=== PATIENT | male | born 1960 | race African-American/Black ===

== ENCOUNTER → 2016-10-12 | Outpatient (CLI) | payer OTHER | END | disposition home or self-care (01) | LOC: PF 07:32 | PROVIDERS: ATTEND Neuromusculoskeletal Medicine, Sports Medicine | DX: C34.90 Malignant neoplasm of unspecified part of unspecified bronchus or lung (principal) | CPT/HCPCS: 94060; 94729 ==

== ENCOUNTER 2019-11-29 17:38 | Emergency (ER) | payer OTHER ==
[~2019-11-29] VITALS: Ht 182.9 cm; Wt 113.6 kg
--- NOTE | 2019-11-29 18:20 | RAD ---
INDICATION: Shortness of air with recent biopsy COMPARISON: None. FINDINGS: Single view of chest obtained. 2-lead pacemaker is identified. Moderate to large right-sided pneumothorax is seen. The pleural edge is approximately 3 cm from the lateral chest wall and measures approximately 75 mm at the right apex. There is patchy opacities within the right lung. IMPRESSION: * Moderate to large right-sided pneumothorax. * Patchy opacities within the right lung. Comparison is not available for review to assess how much of this is pre-existing and how much is an acute finding. If the patient had a mass in the area portion of this could be secondary to a mass with alveolar hemorrhage, infection or aspiration also potentially having this radiographic appearance. Report called to the patient's floor at 6:14 PM on date of exam. Electronically signed by: Gerardo Casanova MD (11/29/2019 6:17 PM) [id number]
[2019-11-29 18:37] LABS: BASO % 1 % (0-3); EOS # 0.1 x10^3/uL (0.0-0.7); EOS % 2 % (0-3); HEMATOCRIT 51.4 % (39.0-53.0); HEMOGLOBIN 17.1 g/dL (13.0-17.5); LYMPH # 1.2 x10^3/uL (1.0-4.8); LYMPH % 19 % (24-48); MEAN CORPUSCULAR HEMOGLOBIN 27 pg (25-35); MEAN CORPUSCULAR HGB CONC 33 g/dL (31-37); MEAN CORPUSCULAR VOLUME 81 fL (79-100); MONO # 0.6 x10^3/uL (0.0-1.1); MONO % 10 % (0-9); NEUT # 4.5 x10^3/uL (1.8-7.7); NEUT % 70 % (31-73); PLATELET COUNT 200 x10^3/uL (140-400); RED BLOOD COUNT 6.34 x10^6/uL (4.30-5.70); RED CELL DISTRIBUTION WIDTH 14.6 % (11.5-14.5); WHITE BLOOD COUNT 6.4 x10^3/uL (4.0-11.0)
[2019-11-29] MEDS ORDERED: MIDAZOLAM HCL/PF 5 MG/5 ML VIAL. ONE (18:43)
[2019-11-29] MEDS ORDERED: MIDAZOLAM HCL/PF 5 MG/5 ML VIAL. NS ONE (18:45)
[2019-11-29] MEDS ORDERED: fentaNYL PF VIAL 100 MCG/2 ML VIAL IVP ONE ×3 (18:45→22:00)
[2019-11-29 18:48] LABS: CALCIUM 9.1 mg/dL (8.5-10.1); CREATININE 1.1 mg/dL (0.7-1.3); GFR 82.3; POTASSIUM 3.9 mmol/L (3.5-5.1)
[2019-11-29 18:54] LABS: ALBUMIN 3.9 g/dL (3.4-5.0); ALBUMIN/GLOBULIN RATIO 1.3 (1.0-1.7); TOTAL BILIRUBIN 0.5 mg/dL (0.2-1.0); TOTAL PROTEIN 6.9 g/dL (6.4-8.2)
--- NOTE | 2019-11-29 19:38 | RAD ---
INDICATION: Follow-up of pneumothorax post chest tube placement COMPARISON: Earlier same day FINDINGS: Single view of chest obtained. Pacemaker is again seen. Repeat demonstration of focal opacity in the right lung. Interval placement of a smallbore chest tube with decrease in size of right-sided pneumothorax with some of the pneumothorax persisting at the right upper chest superiorly and laterally. Pleural line is approximately 4 cm from the lung apex and lateral component is approximately 2 cm from the chest wall. IMPRESSION: * Interval placement of chest tube with decrease in size of previously identified pneumothorax with the apical component and a portion of the lateral component persisting. * Repeat demonstration of focal opacity in the right lung as seen on prior exam. Electronically signed by: Gerrado Casanova MD (11/29/2019 7:35 PM) [id number]
--- NOTE | 2019-11-29 19:55 | PHYS DOC ---
Past Medical History Past Medical History: Cancer, COPD, Diabetes-Type II, Hypertension, Other Additional Past Medical Histor: LUNG CA/CHEMO/RADIATION/CARDIOMYOPATHY Past Surgical History: Pacemaker, Other Additional Past Surgical Histo: R LUNG BX Smoking Status: Former Smoker Alcohol Use: Rarely General Adult EDM: Chief Complaint: SHORTNESS OF BREATH HPI: HPI: Patient is a 59 year old male who presents with complaint of right-sided chest discomfort and shortness of breath that started at about 5 PM today. Patient indicates that he was seen earlier at the [facility] for a lung biopsy. Patient describes the pain in his chest is sharp and stabbing and he also indicates that he has had some cough. He states the shortness of breath is worsened with minimal exertion. He rates pain is fairly severe. [] Review of Systems: Review of Systems: Constitutional: Denies fever or chills. [] Respiratory: Complains of cough and shortness of breath. [] Cardiovascular: Complains of right-sided chest wall pain. [] GI: Denies abdominal pain, nausea, vomiting or diarrhea. [] Integument: Denies rash. [] Neurologic: Denies headache, focal weakness or sensory changes. [] A full 10 point review of systems has been reviewed and is otherwise negative. Heart Score: Risk Factors: Risk Factors: DM, Current or recent (<one month) smoker, HTN, HLP, family history of CAD, obesity. Risk Scores: Score 0 - 3: 2.5% MACE over next 6 weeks - Discharge Home Score 4 - 6: 20.3% MACE over next 6 weeks - Admit for Clinical Observation Score 7 - 10: 72.7% MACE over next 6 weeks - Early Invasive Strategies Current Medications: Current Medications Medications (Trade) Dose Ordered Sig/Tommy Start Time Stop Time Status Last Admin Dose Admin Fentanyl Citrate (Fentanyl 2ml Vial) 50 mcg 1X ONCE 11/29/19 18:45 11/29/19 18:46 DC 11/29/19 18:49 50 MCG Midazolam HCl (Versed) 5 mg STK-MED ONCE 11/29/19 18:43 11/29/19 18:43 DC Allergies: Allergies: Allergies Coded Allergies Type Severity Reaction Last Updated Verified adhesive tape Allergy Intermediate 11/29/19 Yes metformin Allergy Intermediate UNKNOWN 11/29/19 Yes shellfish derived Allergy Intermediate UNKNOWN 11/29/19 Yes Physical Exam: PE: Constitutional: Well developed, well nourished, no acute distress, non-toxic ap pearance. [] HENT: Normocephalic, atraumatic, bilateral external ears normal, oropharynx moist, no oral exudates, nose normal. [] Eyes: PERRLA, EOMI, conjunctiva normal, no discharge. [] Neck: Normal range of motion, no tenderness, supple. [] Cardiovascular: Regular rate and rhythm [] Lungs & Thorax: Diminished breath sounds are noted on the right to auscultation [] Abdomen: Bowel sounds normal, soft, no tenderness. [] Skin: Warm, dry, no erythema, no rash. [] Extremities: No tenderness, no cyanosis, no clubbing, ROM intact. [] Neurologic: Alert and oriented X 3, no focal deficits noted. [] Current Patient Data: Labs: Laboratory Tests Test 11/29/19 17:45 White Blood Count 6.4 x10^3/uL (4.0-11.0) Red Blood Count 6.34 x10^6/uL (4.30-5.70) H Hemoglobin 17.1 g/dL (13.0-17.5) Hematocrit 51.4 % (39.0-53.0) Mean Corpuscular Volume 81 fL (79-100) Mean Corpuscular Hemoglobin 27 pg (25-35) Mean Corpuscular Hemoglobin Concent 33 g/dL (31-37) Red Cell Distribution Width 14.6 % (11.5-14.5) H Platelet Count 200 x10^3/uL (140-400) Neutrophils (%) (Auto) 70 % (31-73) Lymphocytes (%) (Auto) 19 % (24-48) L Monocytes (%) (Auto) 10 % (0-9) H Eosinophils (%) (Auto) 2 % (0-3) Basophils (%) (Auto) 1 % (0-3) Neutrophils # (Auto) 4.5 x10^3/uL (1.8-7.7) Lymphocytes # (Auto) 1.2 x10^3/uL (1.0-4.8) Monocytes # (Auto) 0.6 x10^3/uL (0.0-1.1) Eosinophils # (Auto) 0.1 x10^3/uL (0.0-0.7) Basophils # (Auto) 0.0 x10^3/uL (0.0-0.2) Sodium Level 141 mmol/L (136-145) Potassium Level 3.9 mmol/L (3.5-5.1) Chloride Level 105 mmol/L (98-107) Carbon Dioxide Level 27 mmol/L (21-32) Anion Gap 9 (6-14) Blood Urea Nitrogen 19 mg/dL (8-26) Creatinine 1.1 mg/dL (0.7-1.3) Estimated GFR (Cockcroft-Gault) 82.3 BUN/Creatinine Ratio 17 (6-20) Glucose Level 119 mg/dL (70-99) H Calcium Level 9.1 mg/dL (8.5-10.1) Total Bilirubin 0.5 mg/dL (0.2-1.0) Aspartate Amino Transferase (AST) 25 U/L (15-37) Alanine Aminotransferase (ALT) 41 U/L (16-63) Alkaline Phosphatase 84 U/L (46-116) Troponin I Quantitative 0.034 ng/mL (0.000-0.055) BL-Rgd-J-Type Natriuretic Peptide 358 pg/mL (0-124) H Total Protein 6.9 g/dL (6.4-8.2) Albumin 3.9 g/dL (3.4-5.0) Albumin/Globulin Ratio 1.3 (1.0-1.7) Laboratory Tests 11/29/19 17:45 Laboratory Tests 11/29/19 17:45 Vital Signs: Vital Signs Date Time Temp Pulse Resp B/P (MAP) Pulse Ox O2 Delivery O2 Flow Rate FiO2 11/29/19 19:15 78 21 114/87 (96) 94 Nasal Cannula 4.0 11/29/19 17:41 98.2 98.2 EKG: EKG: [] Radiology/Procedures: Radiology/Procedures: [] Impression: PROCEDURE: CHEST AP ONLY INDICATION: Shortness of air with recent biopsy COMPARISON: None. FINDINGS: Single view of chest obtained. 2-lead pacemaker is identified. Moderate to large right-sided pneumothorax is seen. The pleural edge is approximately 3 cm from the lateral chest wall and measures approximately 75 mm at the right apex. There is patchy opacities within the right lung. IMPRESSION: * Moderate to large right-sided pneumothorax. * Patchy opacities within the right lung. Comparison is not available for review to assess how much of this is pre-existing and how much is an acute finding. If the patient had a mass in the area portion of this could be secondary to a mass with alveolar hemorrhage, infection or aspiration also potentially having this radiographic appearance. Report called to the patient's floor at 6:14 PM on date of exam. Electronically signed by: Gerardo Casanova MD (11/29/2019 6:17 PM) [id number] Course & Med Decision Making: Course & Med Decision Making Pertinent Labs and Imaging studies reviewed. (See chart for details) [] Chest tube insertion: A timeout was performed and after the chest x-ray was reviewed, the appropriate side was confirmed and marked. The patient was prepped and draped in a normal sterile fashion using chlorhexidine scrub after the patient was positioned in the left lateral recumbent position. A total of 8 mL's of 1% lidocaine was then used to anesthetize the skin, subcutaneous tissue, superior aspect of the rib periosteum and the parietal pleura. A 1 cm incision was then made parallel to the rib in the midaxillary line at the level of the fifth rib. Subcu tissue and muscle, superior to the rib was dissected utilizing #11 blade scalpel. At this point, an 8 [place] chest tube with needle trocar was introduced to the pleural space and tube was advanced over needle. Chest tube was sutured in place at the site of insertion, and connected sick clearly with tape to the Pleur-evac. A sterile occlusive dressing was placed over the insertion site. Postprocedure chest x-ray was completed and demonstrates interval improvement in pneumothorax. Patient tolerated procedure well. [facility] and after reviewing x-rays and emergency room records, patient has been accepted by Dr. Melvin. Huy Disclaimer: Huy Disclaimer: This electronic medical record was generated, in whole or in part, using a voice recognition dictation system. Departure Departure Impression: Primary Impression: Pneumothorax after biopsy Disposition: 02 [facility]SFER [facility] Condition: IMPROVED Referrals: NON,STAFF (PCP) VINICIUS SULTANA Jr. DO November 29, 2019 19:55
[2019-11-29 21:45] VITALS: BP 109/61
--- NOTE | 2019-12-02 07:08 | EKG ---
[facility] [address] [place] [address] Test Date: 2019-11-29 Test Time: 17:56:04 Pat Name: GONZALEZ ANTOINE Department: Room: Gender: M Recooperer: : 1960 Requested By: VINICIUS SULTANA Order Number: [id number] Reading MD: Valentin Murray MD Measurements Intervals [place] Rate: 76 P: 90 AK: 202 QRS: 14 QRSD: 92 T: 155 QT: 406 QTc: 461 Interpretive Statements SINUS RHYTHM ST & T ABNORMALITY, CONSIDER HIGH LATERAL ISCHEMIA OR LEFT VENTRICULAR STRAIN T ABNORMALITY IN ANTERIOR LEADS INFEROLATERAL LEADS ABNORMAL ECG Electronically Signed On 12-02-2019 9:13:34 CDT by Valentin Murray MD
== END 2019-11-29 21:55 | disposition short-term general hospital (02) ==
LOC: ER 17:38
DX: J93.9 Pneumothorax, unspecified (principal); J44.9 Chronic obstructive pulmonary disease, unspecified; E11.9 Type 2 diabetes mellitus without complications; I10 Essential (primary) hypertension; Z87.891 Personal history of nicotine dependence; Z95.0 Presence of cardiac pacemaker; Z88.1 Allergy status to other antibiotic agents; Z91.013 Allergy to seafood; Z88.8 Allergy status to other drugs, medicaments and biological substances
CPT/HCPCS: 32551; 36415; 71045; 80053; 83880; 84484; 85025; 93005; 96374; 96376; 99285; J2250; J3010